=== PATIENT | female | born 1970 | race Two or more races ===

== ENCOUNTER 2021-09-23 16:36 | Inpatient (IN) | payer OTHER ==
[2021-09-23 17:32] VITALS: BMI 24.4
[2021-09-23] MEDS ORDERED: MAGNESIUM HYDROX 2400MG/30ML ORAL SUSPENSION 30 ML CUP PO PRN (18:14)
[2021-09-23] MEDS ORDERED: ONDANSETRON *ODT* 4 MG TABLET SL PRN (18:14)
[2021-09-23] MEDS ORDERED: BENZOCAINE/MENTHOL (CHLORASEPTIC ) LOZENGE MM PRN (18:14)
[2021-09-23] MEDS ORDERED: BISMUTH SUBSALICYLATE 524 MG/30 ML PO PRN (18:14)
[2021-09-23] MEDS ORDERED: DICYCLOMINE HCL 10 MG CAPSULE PO PRN (18:14)
[2021-09-23] MEDS ORDERED: IBUPROFEN 400 MG TABLET (FP) PO PRN (18:14)
[2021-09-23] MEDS ORDERED: MAGNESIUM CITRATE 300 ML BOTTLE PO PRN (18:14)
[2021-09-23] MEDS ORDERED: IBUPROFEN 600 MG TABLET (FP) PO PRN (18:14)
[2021-09-23] MEDS ORDERED: LOPERAMIDE HCL 2 MG CAPSULE PO PRN (18:14)
[2021-09-23] MEDS ORDERED: ACETAMINOPHEN 325 MG TABLET (FP) PO PRN (18:14)
[2021-09-23] MEDS ORDERED: chlordiazePOXIDE HCL 25 MG CAPSULE PO PRN (18:14)
[2021-09-23] MEDS ORDERED: MAG HYDROX/AL HYDROX/SIMETH 30 ML UNIT-DOSE CUP PO PRN (18:14)
[2021-09-23] MEDS: hydrOXYzine PAMOATE 25 MG CAPSULE (FP) PO SCH (21:37)
[2021-09-23] MEDS: MELATONIN 5 MG TABLETS PO SCH (21:37)
[2021-09-23] MEDS: METHOCARBAMOL 500 MG TABLET PO PRN (21:37)
[2021-09-23] MEDS: THIAMINE HCL 100 MG TABLET (FP) PO SCH (21:37)
[2021-09-23] MEDS: chlordiazePOXIDE HCL 25 MG CAPSULE PO SCH (22:35)
[2021-09-23] MEDS ORDERED: cloNIDine HCL 0.1 MG TABLET PO ONE (23:48)
[2021-09-24] MEDS: hydrOXYzine PAMOATE 25 MG CAPSULE (FP) PO SCH ×5 (05:24→22:57)
[2021-09-24] MEDS: chlordiazePOXIDE HCL 25 MG CAPSULE PO SCH ×4 (05:24→22:57)
[2021-09-24] MEDS ORDERED: cloNIDine HCL 0.1 MG TABLET PO ONE (08:00)
[2021-09-24] MEDS ORDERED: sitaGLIPtin PHOSPHATE 50 MG TABLET PO ONE (08:15)
[2021-09-24] MEDS ORDERED: metFORMIN HCL 500 MG TABLET (FP) PO ONE (08:15)
[2021-09-24] MEDS ORDERED: methaDONE HCL 10 MG TABLET PO ONE (10:14)
[2021-09-24] MEDS ORDERED: methaDONE 40 MG, methaDONE 10 MG PO ONE (10:21)
[2021-09-24] MEDS: FAMOTIDINE 20 MG TABLET PO SCH ×2 (10:32→22:57)
[2021-09-24] MEDS: PRENATAL VITAMINS W/ FOLIC ACID TABLET (FP) PO SCH (10:32)
[2021-09-24] MEDS: LISINOPRIL 20 MG TABLET PO SCH (10:33)
[2021-09-24] MEDS: amLODIPine BESYLATE 10 MG TABLET (FP) PO SCH (10:35)
[2021-09-24] MEDS ORDERED: methaDONE HCL 40 MG DISPERSABLE TABLET ONE (10:35)
[2021-09-24] MEDS ORDERED: methaDONE HCL 10 MG TABLET ONE (10:35)
[2021-09-24] MEDS: NICOTINE 7 MG/24 HOURS TOPICAL PATCH TD SCH (10:40)
[2021-09-24 10:50] LABS: HEMOGLOBIN 13.1 GM/dL (10.7-15.3); MCHC 32.7 g/dl (32.0-36.0); MEAN CELL VOLUME 85.6 fl (80-96); MEAN PLT VOLUME 8.3 fl (7.5-11.1); PLATELET COUNT 234 10^3/uL (134-434); RBC 4.68 M/mm3 (3.60-5.2); RDW 13.4 % (11.6-15.6); WHITE BLOOD COUNT 7.4 K/mm3 (4.0-10.0)
[2021-09-24 10:53] LABS: CALCIUM 8.9 mg/dL (8.5-10.1)
[2021-09-24 10:56] LABS: CREATININE 1.3 mg/dL (0.55-1.3)
[2021-09-24 10:58] LABS: BILIRUBIN,TOTAL 0.2 mg/dL (0.2-1); TOT PROT 5.8 g/dl (6.4-8.2)
[2021-09-24] MEDS ORDERED: ALBUTEROL SO4 HFA INHALER IH PRN (16:10)
[2021-09-24] MEDS ORDERED: PATIENT'S OWN MEDICATION (NON-FORMULARY) (Sitagliptin Phos/Metformin Hcl [Janumet 50-500 M PO SCH (16:30)
[2021-09-24] MEDS: metFORMIN HCL 500 MG TABLET (FP) PO SCH (17:53)
[2021-09-24] MEDS: sitaGLIPtin PHOSPHATE 50 MG TABLET PO SCH (19:19)
[2021-09-24] MEDS: THIAMINE HCL 100 MG TABLET (FP) PO SCH (22:57)
[2021-09-24] MEDS: ARIPiprazole 5 MG TABLET PO SCH (22:57)
[2021-09-24] MEDS: MELATONIN 5 MG TABLETS PO SCH (22:57)
[2021-09-24] MEDS: MONTELUKAST NA 10 MG TABLET PO SCH (23:33)
[2021-09-25] MEDS ORDERED: methaDONE HCL 40 MG DISPERSABLE TABLET ONE (04:28)
[2021-09-25] MEDS ORDERED: methaDONE HCL 10 MG TABLET ONE (04:28)
[2021-09-25] MEDS: methaDONE 40 MG, methaDONE 10 MG PO SCH (05:39)
[2021-09-25] MEDS: hydrOXYzine PAMOATE 25 MG CAPSULE (FP) PO SCH ×5 (05:40→22:45)
[2021-09-25] MEDS: chlordiazePOXIDE HCL 25 MG CAPSULE PO SCH ×4 (05:40→22:47)
[2021-09-25] MEDS ORDERED: methaDONE HCL 10 MG TABLET PO SCH (06:00)
[2021-09-25] MEDS: sitaGLIPtin PHOSPHATE 50 MG TABLET PO SCH ×2 (07:55→19:05)
[2021-09-25] MEDS: metFORMIN HCL 500 MG TABLET (FP) PO SCH ×2 (07:55→18:26)
[2021-09-25] MEDS: amLODIPine BESYLATE 10 MG TABLET (FP) PO SCH (10:06)
[2021-09-25] MEDS: NICOTINE 7 MG/24 HOURS TOPICAL PATCH TD SCH (10:06)
[2021-09-25] MEDS: PRENATAL VITAMINS W/ FOLIC ACID TABLET (FP) PO SCH (10:06)
[2021-09-25] MEDS: LISINOPRIL 20 MG TABLET PO SCH (10:06)
[2021-09-25] MEDS: FAMOTIDINE 20 MG TABLET PO SCH ×2 (10:06→22:45)
[2021-09-25] MEDS ORDERED: METOPROLOL TARTRATE 25 MG TABLET (FP) PO ONE (17:23)
[2021-09-25] MEDS: THIAMINE HCL 100 MG TABLET (FP) PO SCH (22:45)
[2021-09-25] MEDS: MONTELUKAST NA 10 MG TABLET PO SCH (22:45)
[2021-09-25] MEDS: ARIPiprazole 5 MG TABLET PO SCH (22:45)
[2021-09-25] MEDS: MELATONIN 5 MG TABLETS PO SCH (22:45)
[2021-09-26] MEDS ORDERED: chlordiazePOXIDE HCL 10 MG CAPSULE PO PRN
[2021-09-26] MEDS ORDERED: methaDONE HCL 40 MG DISPERSABLE TABLET ONE (04:26)
[2021-09-26] MEDS ORDERED: methaDONE HCL 10 MG TABLET ONE (04:26)
[2021-09-26] MEDS: methaDONE 40 MG, methaDONE 10 MG PO SCH (06:16)
[2021-09-26] MEDS: chlordiazePOXIDE HCL 10 MG CAPSULE PO SCH ×4 (06:17→22:27)
[2021-09-26] MEDS: metFORMIN HCL 500 MG TABLET (FP) PO SCH ×2 (06:18→18:02)
[2021-09-26] MEDS: sitaGLIPtin PHOSPHATE 50 MG TABLET PO SCH (06:18)
[2021-09-26] MEDS: hydrOXYzine PAMOATE 25 MG CAPSULE (FP) PO SCH ×5 (06:18→22:27)
[2021-09-26] MEDS: NICOTINE 10 MG CARTRIDGE (INHALER) IH PRN (08:47)
[2021-09-26] MEDS: amLODIPine BESYLATE 10 MG TABLET (FP) PO SCH (10:51)
[2021-09-26] MEDS: LISINOPRIL 20 MG TABLET PO SCH (10:51)
[2021-09-26] MEDS: PRENATAL VITAMINS W/ FOLIC ACID TABLET (FP) PO SCH (10:51)
[2021-09-26] MEDS: FAMOTIDINE 20 MG TABLET PO SCH ×2 (10:51→22:27)
[2021-09-26] MEDS: METHOCARBAMOL 500 MG TABLET PO PRN (10:51)
[2021-09-26] MEDS: NICOTINE 7 MG/24 HOURS TOPICAL PATCH TD SCH (10:54)
[2021-09-26] MEDS: MELATONIN 5 MG TABLETS PO SCH (22:27)
[2021-09-26] MEDS: THIAMINE HCL 100 MG TABLET (FP) PO SCH (22:27)
[2021-09-26] MEDS: MONTELUKAST NA 10 MG TABLET PO SCH (22:27)
[2021-09-26] MEDS: ARIPiprazole 5 MG TABLET PO SCH (22:28)
[2021-09-27] MEDS: sitaGLIPtin PHOSPHATE 50 MG TABLET PO SCH ×3 (00:03→16:50)
[2021-09-27] MEDS ORDERED: methaDONE HCL 10 MG TABLET ONE (04:48)
[2021-09-27] MEDS ORDERED: methaDONE HCL 40 MG DISPERSABLE TABLET ONE (04:48)
[2021-09-27] MEDS: chlordiazePOXIDE HCL 10 MG CAPSULE PO SCH ×2 (06:54→17:50)
[2021-09-27] MEDS: methaDONE 40 MG, methaDONE 10 MG PO SCH (06:54)
[2021-09-27] MEDS: hydrOXYzine PAMOATE 25 MG CAPSULE (FP) PO SCH ×5 (06:55→22:16)
[2021-09-27] MEDS: metFORMIN HCL 500 MG TABLET (FP) PO SCH ×2 (07:12→16:49)
[2021-09-27] MEDS: ACETAMINOPHEN 325 MG TABLET (FP) PO PRN (09:03)
[2021-09-27] MEDS: FAMOTIDINE 20 MG TABLET PO SCH ×2 (10:31→22:16)
[2021-09-27] MEDS: METHOCARBAMOL 500 MG TABLET PO PRN ×2 (10:32→17:49)
[2021-09-27] MEDS: LISINOPRIL 20 MG TABLET PO SCH (10:32)
[2021-09-27] MEDS: PRENATAL VITAMINS W/ FOLIC ACID TABLET (FP) PO SCH (10:32)
[2021-09-27] MEDS: amLODIPine BESYLATE 10 MG TABLET (FP) PO SCH (10:32)
[2021-09-27] MEDS: NICOTINE 7 MG/24 HOURS TOPICAL PATCH TD SCH (10:32)
[2021-09-27] MEDS: NICOTINE 10 MG CARTRIDGE (INHALER) IH PRN (10:33)
[2021-09-27] MEDS ORDERED: INSULIN (NOVOLOG) ASPART 100 UNITS/ML 10ML VIAL ONE (17:30)
[2021-09-27] MEDS: MONTELUKAST NA 10 MG TABLET PO SCH (22:16)
[2021-09-27] MEDS: THIAMINE HCL 100 MG TABLET (FP) PO SCH (22:16)
[2021-09-27] MEDS: MELATONIN 5 MG TABLETS PO SCH (22:16)
[2021-09-27] MEDS: ARIPiprazole 5 MG TABLET PO SCH (22:17)
[2021-09-28] MEDS ORDERED: methaDONE HCL 10 MG TABLET ONE (04:21)
[2021-09-28] MEDS ORDERED: methaDONE HCL 40 MG DISPERSABLE TABLET ONE (04:22)
[2021-09-28] MEDS ORDERED: chlordiazePOXIDE HCL 10 MG CAPSULE PO ONE (05:00)
[2021-09-28] MEDS: hydrOXYzine PAMOATE 25 MG CAPSULE (FP) PO SCH ×2 (06:20→09:50)
[2021-09-28] MEDS: methaDONE 40 MG, methaDONE 10 MG PO SCH (06:20)
[2021-09-28] MEDS: sitaGLIPtin PHOSPHATE 50 MG TABLET PO SCH (06:21)
[2021-09-28] MEDS: metFORMIN HCL 500 MG TABLET (FP) PO SCH (06:21)
[2021-09-28 07:11] VITALS: TEMP 96.9
[2021-09-28] MEDS ORDERED: cloNIDine HCL 0.1 MG TABLET PO PRN (09:26)
[2021-09-28] MEDS: LISINOPRIL 20 MG TABLET PO SCH (09:49)
[2021-09-28] MEDS: FAMOTIDINE 20 MG TABLET PO SCH (09:49)
[2021-09-28] MEDS: amLODIPine BESYLATE 10 MG TABLET (FP) PO SCH (09:50)
[2021-09-28] MEDS: PRENATAL VITAMINS W/ FOLIC ACID TABLET (FP) PO SCH (09:50)
[2021-09-28] MEDS: NICOTINE 7 MG/24 HOURS TOPICAL PATCH TD SCH (09:50)
[2021-09-28] MEDS: METHOCARBAMOL 500 MG TABLET PO PRN (09:50)
[2021-09-28 09:56] VITALS: BP 147/85; PULSE 71
[2021-09-28] MEDS: ACETAMINOPHEN 325 MG TABLET (FP) PO PRN (10:30)
[2021-09-28] MEDS: NICOTINE 10 MG CARTRIDGE (INHALER) IH PRN (10:55)
== END 2021-09-28 12:03 | disposition home or self-care (01) | DRG 897 ==
LOC: YASAS 16:36 → Y6N 19:06
PROVIDERS: ADMIT Allergy & Immunology; ATTEND Surgery
PROC: HZ2ZZZZ Detoxification Services for Substance Abuse Treatment (ICD-10-PCS; principal; 2021-09-23)
DX: F10.230 Alcohol dependence with withdrawal, uncomplicated (principal); F11.20 Opioid dependence, uncomplicated; F14.20 Cocaine dependence, uncomplicated; F12.20 Cannabis dependence, uncomplicated; F17.213 Nicotine dependence, cigarettes, with withdrawal; I10 Essential (primary) hypertension; E11.9 Type 2 diabetes mellitus without complications; Z79.84 Long term (current) use of oral hypoglycemic drugs; K21.9 Gastro-esophageal reflux disease without esophagitis; Z62.810 Personal history of physical and sexual abuse in childhood; Z91.410 Personal history of adult physical and sexual abuse; Z88.0 Allergy status to penicillin; Z91.013 Allergy to seafood
CPT/HCPCS: 36415; 80053; 81025; 82962; 85027; 86780; 87811; C9803-CS; J0735; U0003; U0005